=== PATIENT | male | born 1945 | race Caucasian/White ===

== ENCOUNTER 2016-08-02 11:42 | Outpatient (CLI) | payer MEDICARE ==
[2016-08-02 14:32] LABS: #Basophils 0.1 thou/uL (0.0-0.2); #Eosinphils 0.2 thou/uL (0.0-0.7); #Monocytes 0.6 thou/uL (0.11-0.59); #Neutrophils 5.2 thou/uL (1.40-6.50); %Eosinophils 2.2 % (0.0-10.0); %Lymphocytes 24.5 % (21.0-51.0); %Monocytes 7.6 % (0.0-10.0); Hematocrit 46.7 % (42.0-52.0); Mean Platelet Volume 7.5 fL (7.4-10.4); Red Blood Cell (RBC) Count 5.38 mill/uL (4.70-6.10)
[2016-08-02 14:33] LABS: ALT (SGPT) 41 U/L (0-55); AST (SGOT) 24 U/L (5-34); Alkaline Phosphatase 87 U/L (40-150); Anion Gap 18 mmol/L (10-20); BUN (Urea Nitrogen) 23 mg/dL (8.4-25.7); Bilirubin, Total 0.5 mg/dL (0.2-1.2); Calc. Creatinine Clearance 0 mL/min (70-130); Calcium 9.2 mg/dL (7.8-10.44); Carbon Dioxide 23 mmol/L (23-31); Chloride 103 mmol/L (98-107); Estimated GFR-MDRD 80; Globulin 2.6 g/dL (2.4-3.5); LDL Cholesterol, Calculated 89 mg/dL; Protein, Total 6.8 g/dL (5.8-8.1)
[2016-08-02 14:35] LABS: Bilirubin Negative (Negative); Blood, Urine Negative (Negative); Glucose, Urine (Dipstick) Negative (Negative); Ketone, Urine Negative (Negative); Nitrite Negative (Negative); Protein, Urine (Dipstick) Negative (Neg-Trace); Urobilinogen 0.2 mg/dL (0.2-1.0)
[2016-08-02 15:19] LABS: Bacteria/HPF None Seen HPF (None Seen); RBC/HPF None Seen HPF (0-3); Squamous Epithelial 0-3 HPF (0-3); WBC/HPF 0-3 HPF (0-3)
== END 2016-08-02 11:43 ==
LOC: NAVSJIPCSP 11:42
PROVIDERS: ATTEND Internal Medicine
DX: Z12.5 Encounter for screening for malignant neoplasm of prostate (principal); Z00.00 Encounter for general adult medical examination without abnormal findings; E78.5 Hyperlipidemia, unspecified; E11.40 Type 2 diabetes mellitus with diabetic neuropathy, unspecified; Z79.899 Other long term (current) drug therapy
CPT/HCPCS: 36415; 80053; 80061; 81001; 82043; 82570; 83036; 85025; G0103

== ENCOUNTER 2016-11-14 09:51 | Outpatient (CLI) | payer MEDICARE ==
[2016-11-14 13:03] LABS: Cardiac Risk 3.7 (Less than 4.5)
== END 2016-11-14 09:52 ==
LOC: NAVSJIPCSP 09:51
PROVIDERS: ATTEND Internal Medicine
DX: E78.5 Hyperlipidemia, unspecified (principal); E11.40 Type 2 diabetes mellitus with diabetic neuropathy, unspecified
CPT/HCPCS: 36415; 80061

== ENCOUNTER 2016-11-15 14:31 | Outpatient (CLI) | payer MEDICARE | END 2016-11-15 14:32 | disposition home or self-care (01) | LOC: NAVSJIPCSP 14:31 | PROVIDERS: ATTEND Internal Medicine | DX: E78.5 Hyperlipidemia, unspecified (principal); E11.40 Type 2 diabetes mellitus with diabetic neuropathy, unspecified | CPT/HCPCS: 83036 ==

== ENCOUNTER 2017-02-27 10:09 | Outpatient (CLI) | payer MEDICARE ==
[2017-02-27 12:45] LABS: Hemoglobin A1c 7.1 % (4.0-6.0)
[2017-02-27 14:01] LABS: Cardiac Risk 3.5 (Less than 4.5)
== END 2017-02-27 10:10 | disposition home or self-care (01) ==
LOC: NAVSJIPCSP 10:09
PROVIDERS: ATTEND Internal Medicine
DX: E78.5 Hyperlipidemia, unspecified (principal); E11.40 Type 2 diabetes mellitus with diabetic neuropathy, unspecified; Z79.899 Other long term (current) drug therapy
CPT/HCPCS: 36415; 80061; 83036

== ENCOUNTER 2018-04-23 01:41 | Emergency (ER) | payer MEDICARE ==
[2018-04-23] MEDS ORDERED: Lidocaine 1% w/Epinephrine 1:100K 30 ML VIAL ONE (02:22)
--- NOTE | 2018-04-23 07:53 | RAD ---
TWO VIEWS LEFT FINGER: INDICATION: History of reduction. COMPARISON: Prior exam dated 04/23/18 at 1:58 a.m. FINDINGS: Since the comparison examination, there has been reduction of the PIP joint dislocation of the left r ing finger. Small ossific fragments are seen volar to the PIP joint, likely reflecting a comminuted avulsion fracture from the volar base of the ring finger middle phalanx. 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 There is a radiopaque foreign body within the s oft tissues adjacent to the thumb. IMPRESSION: 1. Interval reduction of proximal interphalangeal fracture dislocation. Hand surgical consultation is recommended. 2. Radiopaque foreign body within the soft tissues near the thumb. POS: BH
--- NOTE | 2018-04-23 07:55 | RAD ---
THREE VIEWS OF THE LEFT RING FINGER: INDICATION: Fell in bath tub jamming the left 4th finger. FINDINGS: There is dorsal dislocation of the left ring finger PIP joint. There is a small obliquely oriented c omminuted avulsion fracture involving the volar base of the left ring finger middle finger. No addit ional fracture is evident. 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 Small radiopaque foreign body is seen adjacent to the thumb on the lateral p rojection measuring 4 mm. IMPRESSION: 1. Dorsal dislocation and fracture of the left ring finger proximal interphalangeal joint. 2. Radiopaque foreign body within the soft tissues adjacent to the thumb. POS: BH
== END 2018-04-23 02:35 | disposition home or self-care (01) ==
LOC: NAV ERS 01:41
DX: S62.615A Displaced fracture of proximal phalanx of left ring finger, initial encounter for closed fracture (principal); E78.5 Hyperlipidemia, unspecified; Z79.84 Long term (current) use of oral hypoglycemic drugs; Z79.899 Other long term (current) drug therapy; E11.9 Type 2 diabetes mellitus without complications; W18.2XXA Fall in (into) shower or empty bathtub, initial encounter
CPT/HCPCS: 26770; J2001; Q4049

== ENCOUNTER 2018-10-18 09:51 | Outpatient (CLI) | payer MEDICARE ==
--- NOTE | 2018-10-18 11:12 | CT ---
CT BRAIN WITHOUT CONTRAST: Date: 10/18/18 HISTORY: Gait disturbance. FINDINGS: There is ventricular sulcal prominence due to cortical atrophy. No evidence of infarct, hemorrhage, m idline shift, or abnormal extra-axial fluid collections are seen. The basilar cisterns are patent. Th e bony calvarium is intact. The visualized paranasal sinuses and mastoid air cells are well aerated. IMPRESSION: No CT evidence of acute intracranial process. POS: C
== END 2018-10-18 09:52 | disposition home or self-care (01) ==
LOC: NAV CT 09:51
PROVIDERS: ATTEND Internal Medicine
DX: R26.9 Unspecified abnormalities of gait and mobility (principal)
CPT/HCPCS: 70450